=== PATIENT | male | born 1995 | race Caucasian/White ===

== ENCOUNTER 2016-07-14 18:58 | Emergency (ER) | payer BC ==
[~2016-07-14] VITALS: Ht 167.6 cm; Wt 61.4 kg
[~2016-07-14 18:58] MED LIST: FLAGYL500 MG PO; LORTAB 5/500 501 TAB PO; MOTRIN 600600 MG/TAB PO
[2016-07-14 19:01] VITALS: TEMP 97.9
[2016-07-14 19:40] LABS: BASO % 0.4 % (0.0-2.0); EOS # 0.2 (0.0-0.7); EOS % 1.6 % (0-4.0); GRAN # 7.2 (1.4-6.5); GRAN % 68.2 % (42.2-75.2); HEMATOCRIT 43.4 % (36.0-47.0); HEMOGLOBIN 14.5 g/dl (12.5-16.1); LYMPH # 2.3 (1.2-3.4); LYMPH % 21.4 % (20.0-51.0); MEAN CELL VOLUME 90 fl (80.0-95.0); MEAN CORPUSCULAR HEMOGLOBIN 30 pg (26.0-32.0); MEAN CORPUSCULAR HGB CONC 33 g/dl (33.0-37.0); MEAN PLATELET VOLUME 9.4 fl (7.4-10.4); MONO # 0.8 (0.1-0.6); MONO % 7.9 % (1.7-9.3); PLATELET COUNT 248 K/mm3 (130-400); REDCELL DISTRIBUTION WIDTH-CV 12.9 % (11.5-14.5); WHITE BLOOD COUNT 10.5 K/mm3 (4.8-10.8)
[2016-07-14 19:45] LABS: ADJUSTED CALCIUM 9.7 mg/dL (8.4-10.2); ALANINE AMINOTRANSFERASE 53 U/L (21-72); ALBUMIN 4.5 gm/dL (3.5-5.0); ALKALINE PHOSPHATASE 97 U/L (50-136); ANION GAP 15 mmol/L (7-16); BILIRUBIN,TOTAL 0.6 mg/dL (0.0-1.0); BLOOD UREA NITROGEN 14 mg/dL (9-20); CALCIUM 10.1 mg/dL (8.4-10.2); CARBON DIOXIDE 24 mmol/L (22-30); CHLORIDE 100 mmol/L (98-107); CREATININE, serum 0.82 mg/dL (0.66-1.25); GLUCOSE 89 mg/dL (74-106); POTASSIUM 4.2 mmol/L (3.4-5.0); SODIUM 139 mmol/L (137-145); TOTAL PROTEIN 7.6 gm/dL (6.4-8.2)
[2016-07-14 20:27] VITALS: BP 129/72; PULSE 96
[2016-07-14 20:34] LABS: PH 7 (5-8); SQUAMOUS EPITHELIAL None Seen /hpf; URINE APPEARANCE Clear; URINE BACTERIA None Seen /hpf; URINE BILIRUBIN Negative (NEGATIVE); URINE BLOOD Negative (NEGATIVE); URINE COLOR Straw; URINE GLUCOSE Negative (NEGATIVE); URINE KETONE Negative (NEGATIVE); URINE RBC 0-2 /hpf; URINE UROBILINOGEN Negative (NEGATIVE); URINE WBC 0-2 /hpf
== END 2016-07-14 20:38 | disposition home or self-care (01) ==
LOC: COL.ER 18:58
PROVIDERS: Family Medicine
DX: S16.1XXA Strain of muscle, fascia and tendon at neck level, initial encounter (principal); S00.01XA Abrasion of scalp, initial encounter; S30.810A Abrasion of lower back and pelvis, initial encounter; R07.81 Pleurodynia; M79.662 Pain in left lower leg; S30.0XXA Contusion of lower back and pelvis, initial encounter; V13.4XXA Pedal cycle driver injured in collision with car, pick-up truck or van in traffic accident, initial encounter; Y93.55 Activity, bike riding; Y92.410 Unspecified street and highway as the place of occurrence of the external cause
CPT/HCPCS: Q9967

== ENCOUNTER 2016-07-17 16:53 | Emergency (ER) | payer BC ==
[~2016-07-17] VITALS: Ht 167.6 cm; Wt 63.6 kg
[2016-07-17 16:57] VITALS: TEMP 98.7
[2016-07-17 18:05] LABS: PH 7 (5-8); SQUAMOUS EPITHELIAL None Seen /hpf; URINE APPEARANCE Clear; URINE BACTERIA None Seen /hpf; URINE BILIRUBIN Negative (NEGATIVE); URINE BLOOD Negative (NEGATIVE); URINE COLOR Straw; URINE GLUCOSE Negative (NEGATIVE); URINE KETONE Negative (NEGATIVE); URINE RBC 0-2 /hpf; URINE UROBILINOGEN Negative (NEGATIVE); URINE WBC 0-2 /hpf
[2016-07-17] MEDS ORDERED: FLEXERIL 1010 MG/TAB PO (19:02)
[2016-07-17 19:10] VITALS: BP 128/82; PULSE 90
== END 2016-07-17 19:11 | disposition home or self-care (01) ==
LOC: COL.ER 16:53
PROVIDERS: Nurse Practitioner
DX: R51 Headache (principal); M79.89 Other specified soft tissue disorders
CPT/HCPCS: J1885; J2360

== ENCOUNTER 2016-08-03 08:19 | Emergency (ER) | payer BC ==
[~2016-08-03] VITALS: Ht 167.6 cm; Wt 61.4 kg
[~2016-08-03 08:19] MED LIST changes: +FLEXERIL 1010 MG/TAB PO
[2016-08-03 09:28] LABS: AMPHETAMINE URINE NEGATIVE; BARBITURATES URINE NEGATIVE; BENZODIAZEPINES URINE NEGATIVE; BUPRENORPHINE URINE NEGATIVE; METHADONE URINE NEGATIVE; OPIATES URINE NEGATIVE; OXYCODONE URINE NEGATIVE; PHENCYCLIDINE URINE NEGATIVE; PROPOXYPHENE URINE NEGATIVE; THC CANNABINOIDS URINE NEGATIVE
[2016-08-03 09:47] LABS: BASO % 0.4 % (0.0-2.0); EOS # 0.1 (0.0-0.7); EOS % 0.6 % (0-4.0); GRAN # 6.5 (1.4-6.5); GRAN % 69.9 % (42.2-75.2); HEMOGLOBIN 15.8 g/dl (12.5-16.1); LYMPH # 2.1 (1.2-3.4); LYMPH % 22.3 % (20.0-51.0); MEAN CELL VOLUME 90 fl (80.0-95.0); MEAN CORPUSCULAR HEMOGLOBIN 30 pg (26.0-32.0); MEAN CORPUSCULAR HGB CONC 34 g/dl (33.0-37.0); MONO # 0.6 (0.1-0.6); MONO % 6.6 % (1.7-9.3); PLATELET COUNT 401 K/mm3 (130-400); RED BLOOD COUNT 5.21 M/mm3 (4.20-5.60); REDCELL DISTRIBUTION WIDTH-CV 13.2 % (11.5-14.5); WHITE BLOOD COUNT 9.3 K/mm3 (4.8-10.8)
[2016-08-03 09:55] LABS: ACETAMINOPHEN < 10 ug/mL (10-30); ADJUSTED CALCIUM 9.7 mg/dL (8.4-10.2); ALANINE AMINOTRANSFERASE 52 U/L (21-72); ALBUMIN 5.4 gm/dL (3.5-5.0); ALKALINE PHOSPHATASE 123 U/L (50-136); ANION GAP 19 mmol/L (7-16); BILIRUBIN,TOTAL 1.4 mg/dL (0.0-1.0); BLOOD UREA NITROGEN 16 mg/dL (9-20); CALCIUM 10.8 mg/dL (8.4-10.2); CARBON DIOXIDE 24 mmol/L (22-30); CHLORIDE 99 mmol/L (98-107); CREATININE, serum 0.86 mg/dL (0.66-1.25); GLUCOSE 108 mg/dL (74-106); POTASSIUM 3.9 mmol/L (3.4-5.0); SALICYLATE < 1.0 mg/dL; SODIUM 142 mmol/L (137-145); TOTAL PROTEIN 9.7 gm/dL (6.4-8.2)
[2016-08-03 13:06] VITALS: TEMP 97.5
[2016-08-03 17:03] VITALS: BP 127/71; PULSE 93
== END 2016-08-03 17:05 ==
LOC: COL.ER 08:19
PROVIDERS: Nurse Practitioner
DX: F29 Unspecified psychosis not due to a substance or known physiological condition (principal); R45.851 Suicidal ideations

== ENCOUNTER 2016-08-03 18:00 | Observation (INO) | payer BC ==
[~2016-08-03] VITALS: Ht 170.2 cm; Wt 75.0 kg
[2016-08-04 00:03] VITALS: BP 118/74; PULSE 72; TEMP 97.5
[2016-08-04 07:40] VITALS: BP 124/57; PULSE 86; TEMP 99.1
[2016-08-04 12:00] VITALS: BP 103/69; PULSE 42; TEMP 97.3
[2016-08-04 20:00] VITALS: BP 131/61; PULSE 101; TEMP 98.1
[2016-08-05 05:08] VITALS: BP 104/51; PULSE 81; TEMP 97.2
[2016-08-05 08:41] VITALS: BP 128/81; PULSE 92; TEMP 97.8
[2016-08-05] MEDS ORDERED: ZYPREXA10 MG PO (12:31)
[2016-08-05] MEDS ORDERED: ATIVAN2 MG PO (12:32)
== END 2016-08-05 15:28 ==
LOC: COL.ER 18:00 → MEDICAL 22:41
DX: F29 Unspecified psychosis not due to a substance or known physiological condition (principal)
CPT/HCPCS: G0378

== ENCOUNTER 2016-08-05 15:35 | Observation (INO) | payer BC ==
[~2016-08-05 15:35] MED LIST changes: +ATIVAN2 MG PO; +ZYPREXA10 MG PO
[2016-08-05 19:28] VITALS: BP 125/82; PULSE 108; TEMP 97.6
[2016-08-05 23:26] VITALS: BP 120/75; PULSE 101; TEMP 98
[2016-08-06 08:08] VITALS: BP 129/82; PULSE 105; TEMP 97.7
== END 2016-08-06 11:45 | disposition psychiatric hospital, planned readmission (93) ==
LOC: MEDICAL 15:35
DX: F23 Brief psychotic disorder (principal)
CPT/HCPCS: G0378

== ENCOUNTER 2016-11-13 14:51 | Emergency (ER) | payer BC ==
[~2016-11-13] VITALS: Ht 170.2 cm; Wt 72.7 kg
[2016-11-13 14:52] VITALS: BP 129/61; TEMP 98.1
[2016-11-13] MEDS ORDERED: ABILIFY 10MG TA10 MG PO (14:55)
[2016-11-13] MEDS ORDERED: FLEXERIL 1010 MG/TAB PO (15:59)
[2016-11-13 16:08] VITALS: PULSE 84
== END 2016-11-13 16:09 | disposition home or self-care (01) ==
LOC: COL.ER 14:51
DX: M62.838 Other muscle spasm (principal); M54.2 Cervicalgia; G43.909 Migraine, unspecified, not intractable, without status migrainosus; F20.9 Schizophrenia, unspecified

== ENCOUNTER 2019-04-11 23:25 | Emergency (ER) | payer SELFPAY ==
[~2019-04-11] VITALS: Ht 167.6 cm; Wt 80.0 kg
[~2019-04-11 23:25] MED LIST changes: +ABILIFY 10MG TA10 MG PO
[2019-04-11 23:29] VITALS: TEMP 98.4
[2019-04-12 00:20] LABS: BASO % 0.5 % (0.0-2.0); EOS # 0.2 (0.0-0.7); EOS % 2.3 % (0-4.0); GRAN # 4.4 (1.4-6.5); GRAN % 53.2 % (42.2-75.2); HEMATOCRIT 46.8 % (42.0-52.0); HEMOGLOBIN 15.3 g/dl (13.5-18.0); LYMPH # 2.7 (1.2-3.4); LYMPH % 32.4 % (20.0-51.0); MEAN CELL VOLUME 91 fl (80.0-100.0); MEAN CORPUSCULAR HEMOGLOBIN 30 pg (27.0-31.0); MEAN CORPUSCULAR HGB CONC 33 g/dl (33.0-37.0); MEAN PLATELET VOLUME 9.2 fl (7.4-10.4); MONO # 0.9 (0.1-0.6); MONO % 11.4 % (1.7-9.3); PLATELET COUNT 302 K/mm3 (130-400); RED BLOOD COUNT 5.14 M/mm3 (4.20-5.60); REDCELL DISTRIBUTION WIDTH-CV 13.6 % (11.5-14.5)
[2019-04-12 00:22] LABS: ALBUMIN 4.9 gm/dL (3.5-5.0); BILIRUBIN,TOTAL 0.4 mg/dL (0.0-1.0); CALCIUM 10.2 mg/dL (8.4-10.2); CREATININE, serum 1.01 (0.66-1.25); TOTAL PROTEIN 8.4 gm/dL (6.4-8.2)
[2019-04-12 00:40] LABS: COLLECTION METHOD CLEAN CATCH
[2019-04-12 00:46] LABS: MUCOUS Present /lpf; PH 6 (5-8); SQUAMOUS EPITHELIAL None Seen /hpf; URINE APPEARANCE Hazy; URINE BACTERIA Rare /hpf; URINE BILIRUBIN Negative (NEGATIVE); URINE BLOOD 3+ (NEGATIVE); URINE COLOR Yellow; URINE GLUCOSE Negative (NEGATIVE); URINE KETONE Negative (NEGATIVE); URINE LEUKOCYTE ESTERASE Negative (NEGATIVE); URINE NITRATE Negative (NEGATIVE); URINE PROTEIN(semi-quant) Negative (NEGATIVE); URINE RBC >50 /hpf; URINE UROBILINOGEN Negative (NEGATIVE)
[2019-04-12] MEDS ORDERED: VOLTAREN 75 DR75 MG PO (02:06)
[2019-04-12] MEDS ORDERED: ZOFRAN 4MG T4 MG/TAB PO (02:06)
[2019-04-12 02:27] VITALS: BP 125/78; PULSE 82
== END 2019-04-12 02:27 | disposition home or self-care (01) ==
LOC: COL.ER 23:25
PROVIDERS: Emergency Medicine
DX: N20.2 Calculus of kidney with calculus of ureter (principal)
CPT/HCPCS: J1885; J2405; J7030

== ENCOUNTER 2019-04-20 16:48 | Emergency (ER) | payer OTHER ==
[~2019-04-20] VITALS: Ht 198.1 cm; Wt 81.8 kg
[~2019-04-20 16:48] MED LIST changes: +VOLTAREN 75 DR75 MG PO; +ZOFRAN 4MG T4 MG/TAB PO
[2019-04-20 17:38] LABS: COLLECTION METHOD CLEAN CATCH
[2019-04-20 17:46] LABS: MUCOUS Present /lpf; PH 7 (5-8); SQUAMOUS EPITHELIAL None Seen /hpf; URINE APPEARANCE Cloudy; URINE BACTERIA None Seen /hpf; URINE BILIRUBIN Negative (NEGATIVE); URINE BLOOD 3+ (NEGATIVE); URINE COLOR Yellow; URINE GLUCOSE Negative (NEGATIVE); URINE KETONE Negative (NEGATIVE); URINE LEUKOCYTE ESTERASE Negative (NEGATIVE); URINE NITRATE Negative (NEGATIVE); URINE PROTEIN(semi-quant) Negative (NEGATIVE); URINE RBC >50 /hpf; URINE UROBILINOGEN Negative (NEGATIVE)
[2019-04-20 17:57] LABS: BASO % 0.4 % (0.0-2.0); EOS # 0.1 (0.0-0.7); EOS % 1.7 % (0-4.0); GRAN # 4.3 (1.4-6.5); HEMATOCRIT 45.5 % (42.0-52.0); HEMOGLOBIN 15.2 g/dl (13.5-18.0); LYMPH # 2.8 (1.2-3.4); LYMPH % 35.1 % (20.0-51.0); MEAN CELL VOLUME 90 fl (80.0-100.0); MEAN CORPUSCULAR HEMOGLOBIN 30 pg (27.0-31.0); MEAN CORPUSCULAR HGB CONC 33 g/dl (33.0-37.0); MONO # 0.7 (0.1-0.6); MONO % 8.6 % (1.7-9.3); PLATELET COUNT 318 K/mm3 (130-400); RED BLOOD COUNT 5.06 M/mm3 (4.20-5.60); REDCELL DISTRIBUTION WIDTH-CV 13.2 % (11.5-14.5)
[2019-04-20 18:00] LABS: TRICYCLIC ANTIDEPRESS URINE NEGATIVE
[2019-04-20 18:09] LABS: ACETAMINOPHEN < 10 ug/mL (10-30); ALANINE AMINOTRANSFERASE 26 U/L (21-72); ALCOHOL(ethanol),MEDICAL < 10 mg/dL; ALKALINE PHOSPHATASE 83 U/L (50-136); ANION GAP 11 mmol/L (7-16); AST,SGOT 33 U/L (15-37); BILIRUBIN,TOTAL 0.6 mg/dL (0.0-1.0); BLOOD UREA NITROGEN 12 mg/dL (9-20); CALCIUM 10.8 mg/dL (8.4-10.2); CARBON DIOXIDE 27 mmol/L (22-30); CHLORIDE 100 mmol/L (98-107); CREATININE, serum 0.88 (0.66-1.25); GLUCOSE 96 mg/dL (74-106); POTASSIUM 3.5 mmol/L (3.4-5.0); SODIUM 138 mmol/L (137-145); TOTAL PROTEIN 8.5 gm/dL (6.4-8.2)
[2019-04-21 12:32] VITALS: BP 140/92; PULSE 93; TEMP 97.3
== END 2019-04-21 14:40 ==
LOC: COL.ER 16:48
PROVIDERS: Physician Assistant
DX: F20.9 Schizophrenia, unspecified (principal); R45.850 Homicidal ideations